=== PATIENT | female | born 1990 | race American Indian/Alaskan Native ===

== ENCOUNTER 2017-03-22 13:13 | Emergency (ER) | payer OTHER ==
[2017-03-22] MEDS ORDERED: Amoxicillin-Clav 875-125 mg Tab PO STA (13:43)
[2017-03-22] MEDS ORDERED: Amoxicillin-Clav 875-125 mg Tab PO ONE (14:13)
--- NOTE | 2017-03-22 14:31 | C.PDOC ---
Time Seen by Provider: 03/22/17 13:31 Chief Complaint (Nursing): Dental Pain History Per: Patient, Other (Guardian) Onset/Duration Of Symptoms: Days (5) Current Symptoms Are (Timing): Still Present Severity: Moderate Head: 1 - swelling Dental/Oral: 1 - severe caries, pain Quality: Positive for: "Pain" Additional History Per: Prior Records Past Medical History Reviewed: Historical Data, Nursing Documentation, Vital Signs Vital Signs: Last Vital Signs Temp 99.4 F 03/22/17 14:55 Pulse 104 H 03/22/17 14:55 Resp 18 03/22/17 14:55 BP 141/90 03/22/17 14:55 Pulse Ox 99 03/22/17 14:55 - Medical History PMH: Denies: Diabetes Other PMH: Developmental delay. Family History: States: Unknown Family Hx - Social History Hx Tobacco Use: No Hx Alcohol Use: No Hx Substance Use: No - Immunization History Hx Tetanus Toxoid Vaccination: No Hx Influenza Vaccination: No Hx Pneumococcal Vaccination: No Review Of Systems Except As Marked, All Systems Reviewed And Found Negative. Constitutional: Positive for: Fever. Negative for: Weakness Eyes: Negative for: Pain, Vision Change, Conjunctivae Inflammation, Eyelid Inflammation, Redness ENT: Positive for: Mouth Pain. Negative for: Ear Pain, Nose Discharge, Throat Pain, Throat Swelling Cardiovascular: Negative for: Chest Pain Respiratory: Negative for: Cough, Shortness of Breath Gastrointestinal: Negative for: Vomiting, Abdominal Pain Genitourinary: Negative for: Dysuria Musculoskeletal: Negative for: Neck Pain Neurological: Positive for: Headache. Negative for: Weakness, Numbness, Incoordination, Change in Speech, Confusion, Seizures, Altered Mental Status Physical Exam - Physical Exam Appears: Non-toxic, No Acute Distress Skin: Warm, Dry, No Rash Head: Atraumatic, Swelling (left side of face) Eye(s): bilateral: Normal Inspection, PERRL, EOMI Nose: No Discharge, No Epistaxis Oral Mucosa: Moist, No Drooling, No Trismus Tongue: Normal Appearing Teeth: Caries, Tender To Palpation (upper incisors) Gingiva: Erythema, Swelling, Tender Throat: Normal Neck: Normal ROM, Supple Lymphatic: No Adenopathy Cardiovascular: Rhythm Regular Respiratory: Normal Breath Sounds, No Accessory Muscle Use Gastrointestinal/Abdominal: Soft, No Tenderness Back: No CVA Tenderness Extremity: Normal ROM Neurological/Psych: Oriented x3, Normal Speech, Normal Cognition, Normal Motor, Normal Sensation ED Course And Treatment O2 Sat by Pulse Oximetry: 97 Pulse Ox Interpretation: Normal Reassessment Condition: Improved Disposition Counseled Patient/Family Regarding: Studies Performed, Diagnosis, Need For Followup, Rx Given - Disposition Referrals: Dominique Mcarthur DMD [Staff Provider] - Kash Amaral MD [IM] - Disposition: HOME/ ROUTINE Disposition Time: 15:02 Condition: IMPROVED Additional Instructions: Follow up with a dentist or oral surgeon this week for further evaluation and treatment. Return to the ER if you develop lethargy, high fever, trouble breathing or swallowing, worsening of symptoms or if you have any other concerns. Prescriptions: Amoxicillin/Clavulanate [Augmentin 875 MG-125 MG] 1 tab PO BID #14 tab Naproxen [Naprosyn] 1 tab PO BID PRN #20 tab PRN Reason: Pain Instructions: Dental Abscess (ED) - Clinical Impression Clinical Impression: Dental abscess
[2017-03-22 14:56] VITALS: BP 141/90; PULSE 104; RESP 18; TEMP 99.4
[2017-03-22 15:05] VITALS: O2SAT 97
== END 2017-03-22 15:17 | disposition home or self-care (01) ==
LOC: C.ER 13:13
DX: K04.7 Periapical abscess without sinus (principal)